=== PATIENT | male | born 1980 | race Caucasian/White ===

== ENCOUNTER 2025-01-29 09:54 | Emergency (ER) | payer MEDICAID ==
[~2025-01-29] VITALS: Ht 167.6 cm; Wt 95.2 kg
[2025-01-29 10:03] VITALS: O2SAT 100
[2025-01-29 10:06] VITALS: BP 175/113; PULSE 89; RESP 16; TEMP 36.9; O2SAT 99
[2025-01-29] MEDS: TETANUS, DIPHTHERIA, PERTUSSIS VAC/PF 0.5ML (>10YR OLD) IM ONE (12:09)
[2025-01-29] MEDS: LIDOCAINE HCL 1% 20ML VIAL INFIL ONE (12:22)
[2025-01-29] MEDS ORDERED: IBUP-2029 MT (12:24)
[2025-01-29] MEDS ORDERED: CEPH500T MT (12:24)
== END 2025-01-29 12:36 | disposition home or self-care (01) ==
LOC: ER 09:54
DX: S62.627A Displaced fracture of middle phalanx of left little finger, initial encounter for closed fracture (principal); S61.217A Laceration without foreign body of left little finger without damage to nail, initial encounter; I10 Essential (primary) hypertension; Z98.890 Other specified postprocedural states; W17.89XA Other fall from one level to another, initial encounter; Y93.89 Activity, other specified; Y92.89 Other specified places as the place of occurrence of the external cause; Y99.8 Other external cause status
CPT/HCPCS: 73130; 90715; 29125; 90471; 99283; Z7610